=== PATIENT | female | born 1970 | race Caucasian/White ===

== ENCOUNTER 2016-10-21 04:33 | Emergency (ER) | payer BC | END 2016-10-21 07:15 | disposition left against medical advice (07) | LOC: ER1 04:33 | DX: Z53.21 Procedure and treatment not carried out due to patient leaving prior to being seen by health care provider (principal) ==

== ENCOUNTER 2020-10-09 17:45 | Emergency (ER) | payer OTHER ==
[2020-10-09 20:51] LABS: RED BLOOD COUNT 4.86 M/UL (4.00-5.10); WHITE BLOOD COUNT 6.4 K/UL (4.5-11.0)
[2020-10-09 21:08] LABS: BUN/CREATININE RATIO 11 (0-10)
== END 2020-10-09 22:00 | disposition home or self-care (01) ==
LOC: ER1 17:45
PROVIDERS: Family Medicine
DX: R07.89 Other chest pain (principal); I10 Essential (primary) hypertension
CPT/HCPCS: 71045; 80053; 82550; 82553; 83874; 84484; 85025; 93005; 96374; 99285; J1885

== ENCOUNTER → 2021-01-22 | Outpatient (CLI) | payer OTHER | LOC: KOH-I 11:10 | DX: M79.644 Pain in right finger(s) (principal); R93.6 Abnormal findings on diagnostic imaging of limbs; M79.89 Other specified soft tissue disorders | CPT/HCPCS: 73140 ==